=== PATIENT | female | born 1965 | race Caucasian/White ===

== ENCOUNTER 2017-08-12 21:37 | Emergency (ER) | payer OTHER ==
[~2017-08-12] VITALS: Ht 160 cm; Wt 86.2 kg
[~2017-08-12 21:37] MED LIST: ACCUNEB SO1.25 MG/1 IH; ACETAMINOPHEN-1 EAC1 PO; ADVAIR 250-501 EACH IH; ALLERGY INJECTIONS; ALPRAZOLAM; AVELOX 400 MG400 MG PO; AZITHROMYCIN 2250 MG PO; DULERA 100 MCG/13 GM PO; DUONEB 2.5-0.5 M3 ML; FLEXERIL PO; KEFLEX500 MG; LEVAQUIN 500 M500 M3; MEDROL DOSPAK21 TAB PO; MEDROLDOSEPACK PO; NORCO 5-325 TA1 EACH PO; PREDNISONE; PREDNISONE 20 M20 M1 PO; PREDNISONE 20 M20 MG PO; PREDNISONE50 MG PO; PROAIR HFA8.5 GM INH; PROMETHAZINE D480 ML PO; PROVENTIL IH; SINGULAIR 10 MG10 M1 PO; TESSALON PERLE100 MG PO; TUSSIONEX PENN473 ML PO; ULTRAM 50MG TAB50 MG PO; VENTOLIN17 GM INH; XANAX 0.25 MG0.25 MG; XANAX 0.25 MG0.25 MG PO; ZOFRAN ODT4 MG SUBLING; ZPAK PO; ZYRTEC
[2017-08-12] MEDS ORDERED: INCRUSE ELLI62.5 MCG (21:49)
[2017-08-12] MEDS ORDERED: ATORVASTATIN CA40 MG (21:49)
[2017-08-12 22:20] LABS: URINE BILIRUBIN NEGATIVE (Negative); URINE BLOOD NEGATIVE (Negative); URINE CLARITY CLEAR; URINE COLOR YELLOW; URINE GLUCOSE-RANDOM NEGATIVE (Negative); URINE KETONES NEGATIVE (Negative); URINE LEUKOCYTES-REFLEX NEGATIVE (Negative); URINE NITRITE-REFLEX NEGATIVE (Negative); URINE PROTEIN 1+ (Negative); URINE SPECIFIC GRAVITY 1.025 (1.005-1.030); URINE UROBILINOGEN 0.2 E.U./dl (0.2-1.0)
[2017-08-12 22:36] LABS: ABSOLUTE BASOPHILS 0.1 thou/uL (0.0-0.2); ABSOLUTE EOSINOPHILS 0.5 thou/uL (0.0-0.7); ABSOLUTE LYMPHOCYTES 2.8 thou/uL (0.8-5.3); ABSOLUTE MONOCYTES 1.3 thou/uL (0.0-1.2); ABSOLUTE NEUTROPHILS 8.6 thou/uL (1.6-8.1); BASOPHILS 0.8 %; EOSINOPHILS 3.4 %; HEMATOCRIT 40.5 % (37.0-47.0); HEMOGLOBIN 13.6 gm/dL (12.0-15.0); MCH 30.3 pg (26.0-34.0); MCHC 33.6 g/dL (28.0-37.0); MCV 90.1 fL (80.0-100.0); MONOCYTES 9.8 %; MPV 7.1 fl. (7.2-11.1); NUCLEATED RBCS 0 /100WBC; PLATELET COUNT* 259 thou/uL (150-400); RDW-CV 13.1 % (10.5-14.5); WBC 13.3 thou/uL (4.0-11.0)
[2017-08-12 22:42] LABS: CALCIUM 9.3 mg/dL (8.5-10.1); CREATININE 1.1 mg/dL (0.6-1.3); POTASSIUM 3.9 mmol/L (3.5-5.1)
[2017-08-12 22:47] LABS: ALBUMIN 3.7 g/dL (3.4-5.0); TOTAL BILIRUBIN 0.7 mg/dL (<0.1-1.0); TOTAL PROTEIN 7.6 g/dL (6.4-8.2)
[2017-08-13] MEDS ORDERED: CIPROFLOXACIN500 M1 PO (00:32)
[2017-08-13] MEDS ORDERED: FLAGYL500 MG PO (00:32)
[2017-08-13] MEDS ORDERED: ZOFRAN ODT4 MG PO (00:32)
[2017-08-13] MEDS ORDERED: NORCO 5-325 TA1 EACH PO (00:32)
[2017-08-13 00:59] VITALS: BP 109/79
== END 2017-08-13 00:59 | disposition home or self-care (01) ==
LOC: M.ERS 21:37
PROVIDERS: Personal Emergency Response Attendant
DX: K57.92 Diverticulitis of intestine, part unspecified, without perforation or abscess without bleeding (principal); J45.909 Unspecified asthma, uncomplicated; Z90.710 Acquired absence of both cervix and uterus

== ENCOUNTER → 2020-01-06 | Outpatient (CLI) | payer OTHER ==
[~2020-01-06] MED LIST changes: +ATORVASTATIN CA40 MG; +CIPROFLOXACIN500 M1 PO; +FLAGYL500 MG PO; +INCRUSE ELLI62.5 MCG; +ZOFRAN ODT4 MG PO
== END ==
LOC: M.LAB 11:55
PROVIDERS: ATTEND Orthopaedic Surgery
DX: Z01.818 Encounter for other preprocedural examination (principal); Z11.59 Encounter for screening for other viral diseases; M65.341 Trigger finger, right ring finger

== ENCOUNTER → 2020-09-29 | Outpatient (CLI) | payer OTHER | END | disposition home or self-care (01) | LOC: M.RAD 09-27 08:23 | PROVIDERS: ATTEND Orthopaedic Surgery | DX: M25.531 Pain in right wrist (principal); G89.29 Other chronic pain; S63.391A Traumatic rupture of other ligament of right wrist, initial encounter; S63.591A Other specified sprain of right wrist, initial encounter; M67.431 Ganglion, right wrist; M65.841 Other synovitis and tenosynovitis, right hand; Z98.890 Other specified postprocedural states; Z79.899 Other long term (current) drug therapy ==